=== PATIENT | male | born 1995 | race Caucasian/White ===

== ENCOUNTER 2017-01-30 16:41 | Emergency (ER) | payer BC, OTHER ==
[2017-01-30 16:56] VITALS: BP 141/64
[2017-01-30] MEDS ORDERED: Lidocaine 1% MPF* 2 ML VIAL INJ ONE (17:10)
--- NOTE | 2017-01-30 17:36 | UC ---
Laceration HPI - History Of Current Complaint Chief Complaint: UCSkin Stated Complaint: CYST Time Seen by Provider: 01/30/17 17:01 - Allergies/Home Medications Allergies/Adverse Reactions: Allergies Allergy/AdvReac Type Severity Reaction Status Date / Time Amoxicillin Allergy Hives Verified 01/30/17 16:57 Home Medications: Home Medications NK [No Home Medications Reported] 01/30/17 [History Confirmed 01/30/17] PMH/Surg Hx/FS Hx/Imm Hx - Surgical History Surgical History: Yes Surgery Procedure, Year, and Place: elbow surgery, - Social History Alcohol Use: Occasionally Substance Use Type: None Smoking Status (MU): Never Smoked Tobacco Physical Exam Vital Signs: Initial Vital Signs Temp 98.7 F 01/30/17 16:51 Pulse 59 01/30/17 16:51 Resp 20 01/30/17 16:51 BP 141/64 01/30/17 16:51 Pulse Ox 100 01/30/17 16:51
--- NOTE | 2017-01-30 17:37 | UC ---
Skin Complaint HPI - HPI Summary HPI Summary: 8 days of cyst on left cheek getting bigger has pinched a couple of times and did not get any drainage. - History of Current Complaint Chief Complaint: UCSkin Time Seen by Provider: 01/30/17 17:01 Stated Complaint: CYST Hx Obtained From: Patient Onset/Duration: Sudden Onset, Lasting Days - 8, Worse Since - getting worse daily Onset Severity: Mild Current Severity: Moderate Pain Intensity: 6 Location: Discrete Character: Pain, Redness, Raised Aggravating Factor(s): Nothing Alleviating Factor(s): Nothing Associated Signs & Symptoms: Positive: Negative - Allergy/Home Medications Allergies/Adverse Reactions: Allergies Allergy/AdvReac Type Severity Reaction Status Date / Time Amoxicillin Allergy Hives Verified 01/30/17 16:57 Review of Systems Constitutional: Negative Skin: Other - cyst/abscess right cheek Eyes: Negative ENT: Negative Respiratory: Negative Cardiovascular: Negative Gastrointestinal: Negative Genitourinary: Negative Motor: Negative Neurovascular: Negative Musculoskeletal: Negative Neurological: Negative Psychological: Negative Is Patient Immunocompromised?: No All Other Systems Reviewed And Are Negative: Yes PMH/Surg Hx/FS Hx/Imm Hx Previously Healthy: Yes - Surgical History Surgical History: Yes Surgery Procedure, Year, and Place: elbow surgery, - Family History Known Family History: Positive: None - Social History Occupation: Employed Full-time Lives: With Family Alcohol Use: Occasionally Substance Use Type: None Smoking Status (MU): Never Smoked Tobacco Physical Exam Triage Information Reviewed: Yes Appearance: Well-Appearing, No Pain Distress, Well-Nourished Vital Signs: Initial Vital Signs Temp 98.7 F 01/30/17 16:51 Pulse 59 01/30/17 16:51 Resp 20 01/30/17 16:51 BP 141/64 01/30/17 16:51 Pulse Ox 100 01/30/17 16:51 Vital Signs Reviewed: Yes Eye Exam: Normal Eyes: Positive: Conjunctiva Inflamed ENT Exam: Normal ENT: Positive: Normal ENT inspection, Hearing grossly normal. Negative: Nasal congestion Dental Exam: Normal Neck exam: Normal Neck: Positive: Supple, Nontender Respiratory Exam: Normal Respiratory: Positive: Chest non-tender, No respiratory distress, No accessory muscle use Cardiovascular Exam: Normal Cardiovascular: Positive: RRR, Pulses Normal, Brisk Capillary Refill Musculoskeletal Exam: Normal Musculoskeletal: Positive: Strength Intact, ROM Intact, No Edema Neurological Exam: Normal Neurological: Positive: Alert, Muscle Tone Normal Psychological Exam: Normal Psychological: Positive: Normal Response To Family, Age Appropriate Behavior Skin: Positive: Other - 1 cm abscess left cheek center of abscess is fluctulant Re-Evaluation - Re-Evaluation First Eval Change: Improved - 5 mm incions made with respect to Lines of langerhans left check small amount of purulent drainage..steri strip applied to support healing with out scar Course/Dx - Course Course Of Treatment: bactrim warm compress follow with pcp prn - Diagnoses Provider Diagnoses: Abscess I&D left cheek Procedures - Incision and Drainage Site: 1 ml 1 % Lidocaine Anesthesia: Local Instrument(s): Scalpel Discharge - Discharge Plan Condition: Stable Disposition: HOME Prescriptions: Sulfamethox/Trimethoprim DS* [Bactrim DS 800/160 TAB*] 1 tab PO BID #14 tab Patient Education Materials: Incision and Drainage (ED), Warm Compress or Soak (ED) Referrals: [facility] [Outside] - If Needed
== END 2017-01-30 17:45 | disposition home or self-care (01) ==
LOC: UCEAST 16:41
DX: L02.01 Cutaneous abscess of face (principal); Z88.1 Allergy status to other antibiotic agents
CPT/HCPCS: 10060; 99212; G0463